=== PATIENT | female | born 1965 | race Caucasian/White ===

== ENCOUNTER 2017-05-21 12:13 | Emergency (ER) | payer MEDICARE ==
--- NOTE | 2017-05-21 13:31 | RAD ---
HISTORY: Dizziness COMPARISONS: November 07, 2011 VIEWS: 3: Frontal and lateral views of the chest. FINDINGS: CARDIOMEDIASTINAL SILHOUETTE: The cardiomediastinal silhouette is normal. MAANDA: The amanda are normal. PLEURA: The costophrenic angles are sharp. No pleural abnormalities are noted. LUNG PARENCHYMA: There is hyperinflation with flattening of the diaphragm and expansion of the AP diameter of the chest. ABDOMEN: The upper abdomen is clear. There is no subphrenic gas. BONES AND SOFT TISSUES: No bone or soft tissue abnormalities are noted. OTHER: None. IMPRESSION: HYPERINFLATION, CONSISTENT WITH COPD. NO ACTIVE CARDIOPULMONARY DISEASE.
[2017-05-21 13:52] LABS: Hematocrit 40 % (35-47); Hemoglobin 13.6 g/dl (12.0-16.0); Mean Corpuscular HGB Conc 34 g/dl (31-36); Mean Corpuscular Hemoglobin 33 pg (27-31); Mean Corpuscular Volume 97 fL (80-97); Mean Platelet Volume 8 um3 (7.4-10.4); Red Blood Count 4.11 10^6/ul (4.0-5.4); Red Cell Distribution Width 13 % (10.5-15); White Blood Count 6.2 10^3/ul (3.5-10.8)
[2017-05-21 14:08] LABS: Albumin 4.5 g/dL (3.2-5.2); BUN/Creatinine Ratio 18.8 (8-20); Calcium 9.5 mg/dL (8.6-10.3); EGFR African American 115.4 (>60); EGFR Non-African American 89.7 (>60); Globulin 2.8 g/dL (2-4); Potassium 3.7 mmol/L (3.5-5.0); Total Bilirubin 0.5 mg/dL (0.2-1.0); Total Protein 7.3 g/dL (6.4-8.9)
--- NOTE | 2017-05-21 14:21 | RAD ---
HISTORY: Dizziness COMPARISONS: None TECHNIQUE: Multiple contiguous axial CT scans were obtained of the head without intravenous contrast. FINDINGS: HEMORRHAGE/INFARCT: There is no hemorrhage or acute infarct. MASSES/SHIFT: There is no mass or shift. EXTRA-AXIAL SPACES: There are no extra-axial fluid collections. SULCI AND VENTRICLES: The sulci and ventricles are normal in size and position for the patient's stated age. CEREBRUM: There are no focal parenchymal abnormalities. BRAINSTEM: There are no focal parenchymal abnormalities. CEREBELLUM: There are no focal parenchymal abnormalities. VESSELS: The vessels are grossly normal. PARANASAL SINUSES: The paranasal sinuses are clear. ORBITS: The orbits are unremarkable. BONES AND SOFT TISSUE: No bone or soft tissue abnormalities are noted. OTHER: None IMPRESSION: NO ACUTE INTRACRANIAL PATHOLOGY.
[2017-05-21 15:01] VITALS: BP 119/67
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
== END 2017-05-21 14:59 | disposition home or self-care (01) ==
LOC: ED 12:13
DX: R42 Dizziness and giddiness (principal); R53.1 Weakness; R63.1 Polydipsia; E86.0 Dehydration; Z87.820 Personal history of traumatic brain injury; Z88.5 Allergy status to narcotic agent; Z88.8 Allergy status to other drugs, medicaments and biological substances; Z91.040 Latex allergy status
CPT/HCPCS: 36415; 70450; 71020; 80053; 83605; 84484; 85025; 85610; 93005; 99282

== ENCOUNTER 2017-11-02 19:11 | Emergency (ER) | payer MEDICARE ==
[2017-11-02] MEDS ORDERED: Lidocaine 1% MPF* 2 ML VIAL INJ ONE (19:29)
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
[2017-11-02] MEDS ORDERED: Tetan/Diph/Pertus SYR(Tdap)* 0.5 ML SYR(BOOSTRIX) use SYR IM ONE (19:33)
[2017-11-02 19:35] VITALS: BP 132/75
== END 2017-11-02 20:15 | disposition home or self-care (01) ==
LOC: UCEAST 19:11
DX: S61.211A Laceration without foreign body of left index finger without damage to nail, initial encounter (principal); W26.0XXA Contact with knife, initial encounter; Y93.G1 Activity, food preparation and clean up; Y92.9 Unspecified place or not applicable; Z23 Encounter for immunization; Z88.5 Allergy status to narcotic agent; Z88.8 Allergy status to other drugs, medicaments and biological substances
CPT/HCPCS: 12001; 90715; 99211; G0463

== ENCOUNTER 2018-08-13 13:00 | Emergency (ER) | payer MEDICARE ==
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
[2018-08-13] MEDS ORDERED: NS 0.9% 1000 ML* 1,000 ML IV ONE (13:45)
[2018-08-13 14:08] LABS: ABS Basophils 0 10^3/ul (0-0.2); ABS Eosinophils 0.1 10^3/ul (0-0.6); ABS Lymphocytes 1.4 10^3/ul (1.0-4.8); ABS Monocytes 0.3 10^3/ul (0-0.8); ABS Neutrophils 3.4 10^3/ul (1.5-7.7); ABS Nucleated RBC 0 10^3/ul; Eosinophil % 2.4 %; Hematocrit 38 % (35-47); Hemoglobin 13.2 g/dl (12.0-16.0); Lymphocyte % 26.3 %; Mean Corpuscular HGB Conc 34 g/dl (31-36); Mean Corpuscular Hemoglobin 34 pg (27-31); Mean Corpuscular Volume 98 fL (80-97); Mean Platelet Volume 8.5 fL (7.4-10.4); Nucleated Red Blood Cells % 0; Platelet Count 175 10^3/ul (150-450); Red Blood Count 3.93 10^6/ul (4.00-5.40); Red Cell Distribution Width 13 % (10.5-15); White Blood Count 5.3 10^3/ul (3.5-10.8)
[2018-08-13 14:22] LABS: Urine Appearance Cloudy; Urine Bilirubin Negative (Negative); Urine Blood Negative (Negative); Urine Color Yellow; Urine Glucose Negative (Negative); Urine Ketones Negative (Negative); Urine Nitrite Negative (Negative); Urine Protein Negative (Negative); Urine Specific Gravity 1.003 (1.010-1.030); Urine Urobilinogen Negative (Negative)
[2018-08-13 14:52] LABS: Albumin 4.3 g/dL (3.2-5.2); Albumin/Globulin Ratio 2.2 (1-3); BUN/Creatinine Ratio 14.7 (8-20); Calcium 9.3 mg/dL (8.6-10.3); EGFR Non-African American 81.1 (>60); Potassium 3.8 mmol/L (3.5-5.0); Total Bilirubin 0.6 mg/dL (0.2-1.0); Total Protein 6.3 g/dL (6.4-8.9)
[2018-08-13 15:10] VITALS: BP 113/63
== END 2018-08-13 15:07 | disposition home or self-care (01) ==
LOC: ED 13:00
DX: R20.2 Paresthesia of skin (principal); Z87.820 Personal history of traumatic brain injury
CPT/HCPCS: 36415; 70450; 80053; 81003; 85025; 96360; 99282

== ENCOUNTER 2019-05-27 20:55 | Emergency (ER) | payer MEDICARE ==
--- OUTSIDE RECORDS SUMMARY | 2019-05-27 21:17 | XMS REPORT | Continuity of Care Document ---
:1965 External Reference #:[id number] Author Name Maxim Alarcon M.D. 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 Onset: 02/28/2019 Abnormal involuntary movement Maxim Alarcon M.D. Onset: 02/28/2019 Chronic fatigue syndrome Maxim Alarcon M.D. 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 Onset: 05/05/2019 Social History Type Date Description Comments Sex Unknown Tobacco Use Start: Unknown End: Former Cigarette Smoker Unknown Tobacco Use Start: Unknown End: Former Cigarette Smoker Unknown 1/2 Pack Daily Cigarette Use Pack Years - 04 Smoking Status Reviewed: 05/05/19 Former Cigarette Smoker 1/2 Pack Daily ETOH Use Rarely consumes alcohol Tobacco Use Start: Unknown End: Patient is a former social smoker during Unknown smoker college years Exercise Exercises regularly Type/Frequency Allergies, Adverse Reactions, Alerts Active Allergies Reaction Severity Comments Date Codeine too strong - knocks her out for days 09/14/2013 Epinephrine 09/14/2013 Latex 09/14/2013 Medications Active Medications SIG Qnty Indications Ordering Date Provider Carbidopa-Levodopa 1/2 pill three 90tabs G20 Bartolo 03/10/2019 25-100mg times a day, 30 Beard, N.P. 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 Thyroid 1 by mouth every 30tabs E03.9 Celeste 02/16/2019 60mg Tablets day JOHNATHON Poe Terconazole Unknown Multivitamin Adult 1 by mouth every Unknown Tablets day Biest/Progesterone biest/progestero Unknown Cream ne 2/50mg bid Estriol/Test 1/0.5MG/GM 1 gram vaginally Unknown 1-2 times per week Necro-Optimizer 1 Capsule Daily Unknown Vitamin B Complex 1 by mouth every Unknown Tablets day Montez-E 1 Insert Nightly Unknown Suppository Lidocaine HCL Unknown Urethral/Mucosal 2% Gel Vitamin D daily Unknown Vitamin K daily Unknown Sulfamethoxazole 1 tab by mouth Unknown twice daily History Medications [place] Thyroid 1 by mouth 30tabs E03.9 JOHNATHON Hart 02/15/2019 - daily 02/16/2019 60mg Tablets Immunizations Description No Information Available Vital Signs Date Vital Result Comment 05/05/2019 1:07pm Height 65 inches 5'5" Weight 123.00 lb Heart Rate 66 /min BP Systolic 112 mmHg BP Diastolic 72 mmHg BMI (Body Mass Index) 20.5 kg/m2 04/25/2019 10:58am Height 65 inches 5'5" Weight 122.00 lb Heart Rate 83 /min BP Systolic 110 mmHg BP Diastolic 68 mmHg O2 % BldC Oximetry 97 % BMI (Body Mass Index) 20.3 kg/m2 Results Test Date Facility Test Result H/L Range Note Laboratory test 04/09/2019 [facility] TSH 6.89 mcIU/mL High 0.34-5.[address] ([place] [address] Stim Horm) [phone] Free 3.40 pg/mL Normal 2.5-3.9 Free T4 (Free Thyroxine) 0.61 ng/dL Normal 0.61-1.12 Laboratory 03/03/2019 [facility] TSH (Thyroid 1.15 Normal 0.34 -5.60 test finding [address] Stim Horm) mcIU/[place] [address] [phone] Free 3.50 pg/mL Normal 2.5-3.9 Free T4 (Free Thyroxine) 0.67 ng/dL Normal 0.61-1.12 Laboratory test 02/28/2019 [facility] Copper, Serum 0.76 g/mL 0.75-1.45 1 finding [address] [place] [address] [phone] Ceruloplasmin 20.2 mg/dL 2 Free T4 (Free Thyroxine) 0.70 ng/dL Normal 0.61-1.12 TSH (Thyroid Stim Horm) 1.30 mcIU/mL Normal 0.34-5.60 Vitamin B12 02/28/2019 [facility] Vitamin B12 711 pg/mL Normal 180-914 3 And Folate [address] [facility] [place] [address] [phone] Folic Acid (Folate) > 20.00 ng/mL >3.99 Comp Metabolic 02/28/2019 [facility] Sodium 141 mmol/L Normal 135-145 [place] [address] [phone] Potassium 4.4 mmol/L Normal 3.5-5.0 Chloride 104 mmol/L Normal 101-111 Co2 Carbon Dioxide 32 mmol/L Normal 22-32 Anion Gap 5 mmol/L Normal 2-11 Glucose 102 mg/dL High 70-100 Blood Urea Nitrogen 12 mg/dL Normal 6-24 Creatinine 0.75 mg/dL Normal 0.51-0.95 BUN/Creatinine Ratio 16.0 Normal 8-20 Calcium 10.0 mg/dL Normal 8.6-10.3 Total Protein 7.2 g/dL Normal 6.4-8.9 Albumin 4.7 g/dL Normal 3.2-5.2 Globulin 2.5 g/dL Normal 2-4 Albumin/Globulin Ratio 1.9 Normal 1-3 Total Bilirubin 0.70 mg/dL Normal 0.2-1.0 Alkaline Phosphatase 41 U/L Normal 34-104 Alt 16 U/L Normal 7-52 Ast 21 U/L Normal 13-39 Egfr Non- 80.8 >60 Egfr 97.8 >60 4 Laboratory test finding 02/15/2019 [facility] Progesterone 0.7 ng/mL 5 [address] [place] [address] [phone] Estradiol <40 pg/mL 6 Testosterone Free 02/15/2019 [facility] Free 0.19 0.06-0.92 7 & Total [address] [facility] Testosterone ng/[place] [address] ng/dl [phone] Testosterone 17 ng/dL 8-60 8 Laboratory test 02/15/2019 [facility] TSH (Thyroid 7.87 High 0.34-5.[address] Stim Horm) mcIU/[place] [address] [phone] Free T4 (Free Thyroxine) 0.65 ng/dL Normal 0.61-1.12 T3 Free 3.00 pg/mL Normal 2.5-3.9 Thyroid 02/15/2019 [facility] Thyroid 0.53 Normal <9 Autoantibodies [address] [facility] Peroxidase IU/[place] [address] Antibodies [phone] Laboratory test 02/15/2019 [facility] Thyroglobulin 0.5 <4.0 finding [address] Antibody II IU/[place] [address] [phone] C Reactive Protein < 1.00 mg/L Normal <8.01 Vitamin D Total 25(Oh) 29.6 ng/mL Normal 20-50 9 Vitamin B12 635 pg/mL Normal 180-914 10 Estradiol, Confirmatory, S <10 pg/mL 11 Laboratory test 11/19/2018 [facility] Cytology SEE RESULT BELOW 12 finding [address] [place] [address] [phone] ADDITIONAL INFORMATION This test was developed and its performance characteristics determined by [facility] in a manner consistent with CLIA requirements. This test has not been cleared or approved by the U.S. Food and Drug Administration. Test Performed by: [facility] [address] [place] [address] 2 REFERENCE VALUE 20.0 - 51.0 Test Performed by: [facility] [place] [address] [address] 3 Normal Range 180 to 914 Indeterminate Range 145 to 180 Deficient Range <145 4 Because ethnic data is not always readily available, this report includes an eGFR for both -Americans and non- Americans. The National Kidney Disease Education Program (NKDEP) does not endorse the use of the MDRD equation for patients that are not between the ages of 18 and 70, are , have extremes of body size, muscle mass, or nutritional status, or are non- or non-. According to the National Kidney Foundation, irrespective of diagnosis, the stage of the disease is based on the level of kidney function: Stage Description GFR(mL/min/1.73 m(2)) 1 Kidney damage with normal or decreased GFR 90 2 Kidney damage with mild decrease in GFR 60-89 3 Moderate decrease in GFR 30-59 4 Severe decrease in GFR 15-29 5 Kidney failure <15 (or dialysis) 5 Female reference ranges for Progesterone: Follicular phase.......0.3 - 1.5 ng/ml Mid-luteal phase.......5.2 - 18.5 ng/ml Postmenopausal.........< 0.8 ng/ml 1st trimester.........4.7 - 50.0 ng/ml 2nd trimester.........19.4 - 45.3 ng/ml 6 Estradiols <40 pg/mL are sent to a reference lab for low range testing. Postmenopausal Females < 20 Ovulating females: by day in cycle relative to LH Peak Follicular phase - 12 10-50 - 4 60-200 Mid-cycle - 1 120-375 Luteal phase + 2 50-155 + 6 60-260 + 12 15-115 7 ADDITIONAL INFORMATION Testing performed by [facility]. This test was developed and its performance characteristics determined by [facility] in a manner consistent with CLIA requirements. This test has not been cleared or approved by the U.S. Food and Drug Administration. 8 ADDITIONAL INFORMATION Testing performed by Liquid Chromatography-Tandem Mass Spectrometry (LC-MS/MS). This test was developed and its performance characteristics determined by [facility] in a manner consistent with CLIA requirements. This test has not been cleared or approved by the U.S. Food and Drug Administration. Test Performed by: [facility] - [address] [address] 9 Total 25-Hydroxyvitamin D2 and D3 (25-OH-VitD) <10 ng/mL (severe deficiency) 10-19 ng/mL (mild to moderate deficiency) 20-50 ng/mL (optimum levels) 51-80 ng/mL (increased risk of hypercalciuria) >80 ng/mL (toxicity possible) 10 Normal Range 180 to 914 Indeterminate Range 145 to 180 Deficient Range <145 11 REFERENCE VALUE Premenopausal: 15-350 (E2 levels vary widely through the menstrual cycle.) Postmenopausal: <10 ADDITIONAL INFORMATION This test was developed and its performance characteristics determined by [facility] in a manner consistent with CLIA requirements. This test has not been cleared or approved by the U.S. Food and Drug Administration. Test Performed by: [facility] - [address] [address] 12 SEE RESULT BELOW Name: TESFAYE MUNOZ : [address]: Joe Somers MD Acct: [id number] Unit: [id number] AGE: 52 Location: [facility] Re11/19/18 SEX: F Status: REG REF SPEC: [id number] MICHAEL: 11/19/18-[address] [facility] [address]: Joe Somers MD REQ: [id number] RECD: 11/19/18 STATUS: SOUT _ ORDERED: TP IMAGE ANALYS, HPV/Thin Prep COMMENTS: [id number] Negative for Intraepithelial lesion or Malignancy Date Time Test Result Flag (u) Normal Range 11/19/18 1218 @ HPV RNA Negative Negative @ @ The high-risk HPV types detected by the assay include: 16, @ 18, 31, 33, 35, 39, 45, 51, 52, 56, 58, 59, 66, and 68. A. Ectocervical/Endocervical Specimen Adequacy: Satisfactory of evaluation Transformation zone component identified Patient Information: HPV: High risk HPV RNA testing regardless of pap results. Actual Specimen Date: 11/19/18 LMP If Unknown: age 48 ?: N Post Menopausal?: Y Hysterectomy?: N Signed by and Reported on: JINA Loo (ASCP) 0949 This Pap test was evaluated with the assistance of the [employer] GroupPrep Test Imaging System. Due to cytologic findings at the recruitment assistant microscope, comprehensive manual rescreening by a Maintenance Worker House Trailer may be required. The Pap Smear is a screening test designed to aid in the detection of premalignant and malignant conditions of the uterine cervix. It is not a diagnostic procedure and should not be used as the sole means of detecting cervical cancer. Both false- positive and false- negative reports do occur. Depending on your risk status, a Pap smear should be obtained and evaluated every 1-3 years. END OF REPORT DEPARTMENT OF PATHOLOGY, [address] [place] [address] Aleks Moreno M.D. Director [facility] # [id number] Procedures Date Code Description Status 01/10/2018 [id number] Mammogram Completed 05/05/2017 [id number] Colonoscopy Completed Medical Devices Description No Information Available Encounters Type Date Location Provider Dx Diagnosis Office Visit 05/05/2019 [facility] Maxim Alarcon G2Carina Parkinson' s 1:00p [facility] Carlos disease R53.82 Chronic fatigue, unspecified E03.9 Hypothyroidism, unspecified Office Visit 03/23/2019 1:00p [facility] Liv Perdomo, N95.1 Menopausal and [facility] N.P. female climacteric states N94.10 Unspecified dyspareunia Office Visit 03/21/2019 10:30a [facility] Lucy Hart Parkinson's [facility] [place] disease R53.82 Chronic fatigue, unspecified E03.9 Hypothyroidism, unspecified N94.10 Unspecified dyspareunia Office Visit 03/10/2019 8:00a [facility] Bartolo Beard, G20 Parkinson's [facility] N.P. disease R53.82 Chronic fatigue, unspecified S06.2x6A Diffuse Tbi w Loc >24 hr w/o ret consc w surv, init Office Visit 02/28/2019 10:00a Gianna Alarcon, S06.2x6A Diffuse Tbi w Neurologic M.D. Loc >24 hr [facility] w/o ret consc w surv, init R25.1 Tremor, unspecified R53.82 Chronic fatigue, unspecified Office Visit 02/15/2019 1:00p [facility] Celeste Poe, N95.1 Menopausal and [facility] [place] female climacteric states N76.1 Subacute and chronic vaginitis R53.83 Other fatigue E03.9 Hypothyroidism, unspecified Office Visit 11/19/2018 10:30a [facility] Joe Somers, N95.0 Postmenopausal [facility] MD gastelum N95.2 Postmenopausal atrophic vaginitis Z12.4 Encounter for screening for malignant neoplasm of cervix Assessments Date Code Description Provider 05/05/2019 G20 Parkinson's disease Maxim Alarcon M.D. 05/05/2019 R53.82 Chronic fatigue, unspecified Maxim Alarcon M.D. 05/05/2019 E03.9 Hypothyroidism, unspecified Maxim Alarcon M.D. 04/25/2019 R10.2 Pelvic and perineal pain Liv Perdomo N.P. 03/23/2019 N95.1 Menopausal and female climacteric states Liv Perdomo N.P. 03/23/2019 N94.10 Unspecified dyspareunia Liv Perdomo N.P. 03/21/2019 G20 Parkinson's disease JOHNATHON Hart 03/21/2019 R53.82 Chronic fatigue, unspecified JOHNATHON Hart 03/21/2019 E03.9 Hypothyroidism, unspecified JOHNATHON Hart 03/21/2019 N94.10 Unspecified dyspareunia JOHNATHON Hart 03/10/2019 G20 Parkinson's disease Bartolo Beard N.PAleida 03/10/2019 R53.82 Chronic fatigue, unspecified Bartolo Beard N.PAleida 03/10/2019 S06.2x6A Diffuse traumatic brain injury with loss Bartolo Beard N.P. of consciousness gr 02/28/2019 S06.2x6A Diffuse traumatic brain injury with loss Maxim Alarcon M.D. of consciousness gr 02/28/2019 R25.1 Tremor, unspecified Maxim Alarcon M.D. 02/28/2019 R53.82 Chronic fatigue, unspecified Maxim Alarcon M.D. 02/15/2019 N95.1 Menopausal and female climacteric states JOHNATHON Hart 02/15/2019 N76.1 Subacute and chronic vaginitis JOHNATHON Hart 02/15/2019 R53.83 Other fatigue JOHNATHON Hart 02/15/2019 E03.9 Hypothyroidism, raeannified JOHNATHON Hart 11/19/2018 N95.0 Postmenopausal bleeding Joe Somers MD 11/19/2018 N95.2 Postmenopausal atrophic vaginitis Joe Somers MD 11/19/2018 Z12.4 Encounter for screening for malignant Joe Somers MD neoplasm of cervix Plan of Treatment Future Appointment(s):07/05/2019 11:00 am - Bartolo Beard N.P. at [facility]05/09/2019 11:00 am - JOHNATHON Hart at [facility]05/05/2019 - Maxim Alarcon M.D.G20 Parkinson's diseaseFollow up:Follow up in 8 weeks with Gayathri.82 Chronic fatigue, adfkpusgljrG81.9 Hypothyroidism, unspecified Functional Status Description No Information Available Mental Status Description No Information Available Referrals Refer to Reason for Referral Status Appt Date Marsha Valdivia, PT, OCS Pain with sex Sent [address] [place] [address] [phone] Celeste Poe PA Received Complete 02/15/2019 [address] [facility], [place] [address] [phone]
--- OUTSIDE RECORDS SUMMARY | 2019-05-27 21:17 | XMS REPORT | Continuity of Care Document ---
:1965 External Reference #:[id number] Author Name Liv Perdomo N.P. 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 Onset: 02/28/2019 Abnormal involuntary movement Maxim Alarcon M.D. Onset: 02/28/2019 Chronic fatigue syndrome Maxim Alarcon M.D. 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 Onset: consciousness greater than 24 hours without return to pre-existing conscious level with patient surviving, initial encounter Social History Type Date Description Comments Sex Unknown Tobacco Use Start: Unknown End: Former Cigarette Smoker Unknown Tobacco Use Start: Unknown End: Former Cigarette Smoker Unknown 1/2 Pack Daily Cigarette Use Pack Years - 04 Smoking Status Reviewed: 04/25/19 Former Cigarette Smoker 1/2 Pack Daily ETOH [...] Beard, N.P. Tablets min prior to meals [employer] Thyroid 1 by mouth every 30tabs E03.9 [...] by mouth Unknown twice daily History Medications [place] Thyroid 1 by mouth 30tabs E03.9 JOHNATHON Hart 02/15/2019 - daily 02/16/2019 60mg Tablets Immunizations Description No Information Available Vital Signs Date Vital Result Comment 04/25/2019 10:58am Height 65 inches 5'5" Weight 122.00 lb Heart Rate 83 /min BP Systolic 110 mmHg BP Diastolic 68 mmHg O2 % BldC Oximetry 97 % BMI (Body Mass Index) 20.3 kg/m2 03/23/2019 1:15pm Height 65 inches 5'5" Weight 121.25 lb Heart Rate 62 /min BP Systolic Sitting 106 mmHg BP Diastolic Sitting 64 mmHg Body Temperature 97.6 F O2 % BldC Oximetry 100 % BMI (Body Mass Index) 20.2 kg/m2 Results Test Date Facility Test Result H/L Range Note Laboratory test 04/09/2019 [facility] TSH 6.89 mcIU/mL High 0.34-5.[address] ([place] [address] Stim Horm) [phone] [phone] Free 3.40 pg/mL Normal 2.5-3.9 Free T4 (Free Thyroxine) 0.61 ng/dL Normal 0.61-1.12 Laboratory 03/03/2019 [facility] TSH (Thyroid 1.15 Normal 0.34 -5.60 test finding [address] Stim Horm) mcIU/[place] [address] [phone] [phone] Free 3.50 pg/mL Normal 2.5-3.9 Free T4 (Free Thyroxine) 0.67 ng/dL Normal 0.61-1.12 Laboratory test 02/28/2019 [facility] Copper, Serum 0.76 g/mL 0.75-1.45 1 finding [address] [place] [address] [phone] Ceruloplasmin 20.2 mg/dL 2 Free T4 (Free Thyroxine) 0.70 ng/dL Normal 0.61-1.12 TSH (Thyroid Stim Horm) 1.30 mcIU/mL Normal 0.34-5.60 Vitamin B12 02/28/2019 [facility] Vitamin B12 711 pg/mL Normal 180-914 3 And Folate [facility] [place] [address] [phone] Folic Acid (Folate) > 20.00 ng/mL >3.99 Comp Metabolic 02/28/2019 [facility] Sodium 141 mmol/L Normal 135-145 [place] [address] [phone] Potassium 4.4 mmol/L Normal 3.5-5.0 Chloride 104 [...] 97.8 >60 4 Laboratory test finding 02/15/2019 [facility] Progesterone 0.7 ng/mL 5 [address] [place] [address] [phone] Estradiol <40 pg/mL 6 Testosterone Free 02/15/2019 [facility] Free 0.19 0.06-0.92 7 & Total [address] [facility] Testosterone ng/[place] [address] ng/dl [phone] Testosterone 17 ng/dL 8-60 8 Laboratory test 02/15/2019 [facility] TSH (Thyroid 7.87 High 0.34-5.[address] Stim Horm) mcIU/[place] [address] [phone] Free T4 (Free Thyroxine) 0.65 ng/dL Normal 0.61-1.12 T3 Free 3.00 pg/mL Normal 2.5-3.9 Thyroid 02/15/2019 [facility] Thyroid 0.53 Normal <[address] Peroxidase IU/[place] [address] Antibodies [phone] Laboratory test 02/15/2019 [facility] Thyroglobulin 0.5 <4.0 finding 101 [facility] Antibody II IU/[place] [address] [phone] C Reactive Protein < 1.00 mg/L Normal <8.01 Vitamin D Total 25(Oh) 29.6 ng/mL Normal 20-50 9 Vitamin B12 635 pg/mL Normal 180-914 10 Estradiol, Confirmatory, S <10 pg/mL 11 Laboratory test 11/19/2018 [facility] Cytology SEE RESULT BELOW 12 finding [address] [place] [address] [phone] 1 ADDITIONAL INFORMATION This test was developed and its performance characteristics determined by [facility] in a manner consistent with CLIA requirements. This test has not been cleared or approved by the U.S. Food and Drug Administration. Test Performed by: [facility] [employer] - [facility] [address] [place] [address] 2 REFERENCE VALUE 20.0 - 51.0 Test Performed by: [facility] [employer] - [address] [address] 3 Normal Range 180 to 914 Indeterminate [...] developed and its performance characteristics determined by [facility] in a manner consistent with CLIA requirements. This test has not been cleared or approved by the U.S. Food and Drug Administration. 8 ADDITIONAL INFORMATION Testing performed by Liquid Chromatography-Tandem Mass Spectrometry (LC-MS/MS). This test was developed and its performance characteristics determined by [facility] in a manner consistent with CLIA requirements. This test has not been cleared or approved by the U.S. Food and Drug Administration. Test Performed by: [facility] - [address] [address] 9 Total 25-Hydroxyvitamin D2 and D3 (25-OH-VitD) [...] developed and its performance characteristics determined by [facility] in a manner consistent with CLIA requirements. This test has not been cleared or approved by the U.S. Food and Drug Administration. Test Performed by: [facility] - [address] [address] 12 SEE RESULT BELOW Name: TESFAYE MUNOZ : [address]: Joe Somers MD Acct: [id number] Unit: [id number] AGE: 52 Location: [facility] Re11/19/18 SEX: F Status: REG REF SPEC: [id number] MICHAEL: 11/19/18-[address] [facility] [address]: Joe Somers MD REQ: [id number] RECD: 11/19/18 STATUS: SOUT _ ORDERED: TP IMAGE ANALYS, HPV/Thin Prep COMMENTS: [id number] Negative for Intraepithelial lesion or Malignancy Date [...] was evaluated with the assistance of the PanasasPrep Test Imaging System. Due to cytologic findings at the outcomes analyst microscope, comprehensive manual rescreening by a Gang Tailer may be required. The Pap Smear is [...] years. END OF REPORT DEPARTMENT OF PATHOLOGY, [address] [place] [address] Aleks Moreno M.D. Director [facility] # [id number] Procedures Date Code Description Status 01/10/2018 [id number] Mammogram Completed 05/05/2017 [id number] Colonoscopy Completed Medical Devices Description No Information Available Encounters Type Date Location Provider Dx Diagnosis Office Visit 03/23/2019 [facility] Liv Perdomo, N.P. N95.1 Menopausal and 1:00p [facility] female climacteric states N94.10 Unspecified dyspareunia Office Visit 03/21/2019 10:30a [facility] Celeste Poe, 0 Parkinson's [facility] [place] disease R53.82 Chronic fatigue, unspecified E03.9 Hypothyroidism, unspecified N94.10 Unspecified dyspareunia Office Visit 03/10/2019 8:00a [place] Janice Beard, G20 [facility]'s [facility] N.P. disease R53.82 Chronic fatigue, unspecified S06.2x6A Diffuse Tbi w Loc >24 hr w/o ret consc w surv, init Office Visit 02/28/2019 10:00a Gianna Alarcon, S06.2x6A Diffuse Tbi w Neurologic M.D. Loc >24 hr [facility] w/o ret consc w surv, init R25.1 Tremor, unspecified R53.82 Chronic fatigue, unspecified Office Visit 02/15/2019 1:00p [facility] Celeste Poe, N95.1 Menopausal and [facility] JOHNATHON female climacteric states N76.1 Subacute and chronic vaginitis R53.83 Other fatigue E03.9 Hypothyroidism, unspecified Office Visit 11/19/2018 10:30a [facility] Joe Somers, N95.0 Postmenopausal [facility] MD gastelum N95.2 Postmenopausal atrophic vaginitis Z12.4 Encounter for screening for malignant neoplasm of cervix Assessments Date Code Description Provider 03/23/2019 N95.1 Menopausal and female climacteric states Liv Perdomo, N.P. 03/23/2019 N94.10 Unspecified dyspareunia Liv Perdomo, N.P. 03/21/2019 G20 Parkinson's disease Celeste Poe, PA 03/21/2019 R53.82 Chronic fatigue, unspecified Celeste Poe, PA 03/21/2019 E03.9 Hypothyroidism, unspecified Celeste Poe, PA 03/21/2019 N94.10 Unspecified dyspareunia Celeste Poe PA 03/10/2019 G20 Parkinson's disease Bartolo Beard, N.P. 03/10/2019 R53.82 Chronic fatigue, unspecified Bartolo Beard, N.P. 03/10/2019 S06.2x6A Diffuse traumatic brain injury with loss Bartolo Beard , N.P. of consciousness gr 02/28/2019 S06.2x6A Diffuse traumatic brain injury with loss Maxim Alarcon M.D. of consciousness gr 02/28/2019 R25.1 Tremor, unspecified Maxim Alarcon M.D. 02/28/2019 R53.82 Chronic fatigue, unspecified Maxim Alarcon M.D. 02/15/2019 N95.1 Menopausal and female climacteric states Celeste Poe PA 02/15/2019 N76.1 Subacute and chronic vaginitis JOHNATHON Hart 02/15/2019 R53.83 Other fatigue JOHNATHON Hart 02/15/2019 E03.9 Hypothyroidism, unspecified JOHNATHON Hart 11/19/2018 N95.0 Postmenopausal bleeding Joe Somers MD 11/19/2018 N95.2 Postmenopausal atrophic vaginitis Joe Somers MD 11/19/2018 Z12.4 Encounter for screening for malignant Joe Somers MD neoplasm of cervix Plan of Treatment Future Appointment(s):05/09/2019 11:00 am - JOHNATHON Hart at [facility]05/05/2019 1:00 pm - Maxim Alarcon M.D. at [place] [facility] Functional Status Description No Information Available Mental Status Description No Information Available Referrals Refer to Dr Reason for Referral Status Appt Date Marsha Valdivia, PT, OCS Pain with sex Sent [address] [place] [address] [phone] Celeste Poe PA Received Complete 02/15/2019 [address] [facility], [place] [address] [phone]
--- OUTSIDE RECORDS SUMMARY | 2019-05-27 21:17 | XMS REPORT | Continuity of Care Document ---
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 Tablets min prior to meals [employer] Thyroid 1 by mouth every 30tabs E03.9 Celeste 02/16/2019 60mg Tablets day JOHNATHON Poe Terconazole prn yeast Unknown infection Multivitamin Adult 1 by mouth every Unknown Tablets day Biest/Progesterone biest/progesterone Unknown Cream 2/50mg bid Estriol/Test 1/0.5MG/GM 1 gram vaginally Unknown every other night Vitamin B Complex 1 by mouth every Unknown Tablets day [place]-E 1 Insert every Unknown Suppository other night alternating with hormonal therapy Lidocaine HCL applied to urethra Unknown Urethral/Mucosal every other night 2% Gel Vitamin D daily Unknown Vitamin K daily Unknown Sulfamethoxazole 1 tab by mouth Unknown twice daily prn UTI Neuro-Optimizer one capsule daily Unknown History Medications [place] Thyroid 1 by mouth 30tabs E03.9 JOHNATHON Hart 02/15/2019 - daily 02/16/2019 60mg Tablets Immunizations Description No Information Available Vital Signs Date Vital Result Comment 05/09/2019 11:05am Height 65 inches 5'5" Weight 124.25 lb Heart Rate 65 /min BP Systolic 93 mmHg BP Diastolic 60 mmHg Body Temperature 98.0 F Pain Level 100 BMI (Body Mass Index) 20.7 kg/m2 05/05/2019 1:07pm Height 65 inches 5'5" Weight 123.00 lb Heart Rate 66 /min BP Systolic 112 mmHg BP Diastolic 72 mmHg BMI (Body Mass Index) 20.5 kg/m2 Results Test Date Facility Test Result H/L Range Note Laboratory test 05/09/2019 [facility] TSH (Thyroid <pending> finding [address] Stim Horm) [place] [address] [phone] T3 Free <pending> Free T4 (Free Thyroxine) <pending> Laboratory test 04/09/2019 [facility] TSH (Thyroid 6.89 High 0.34-5.[address] Stim Horm) mcIU/mL [place], [place] [address] [phone] Free 3.40 pg/mL Normal 2.5-3.9 Free T4 (Free Thyroxine) 0.61 ng/dL Normal 0.61-1.12 Laboratory 03/03/2019 [facility] TSH (Thyroid 1.15 Normal 0.34 -5.[address] Stim Horm) mcIU/[place] [address] [phone] T3 Free 3.50 pg/mL Normal 2.5-3.9 Free T4 (Free Thyroxine) 0.67 ng/dL Normal 0.61-1.12 Laboratory test 02/28/2019 [facility] Copper, Serum 0.76 g/mL 0.75-1.[address] [place] [address] [phone] Ceruloplasmin 20.2 mg/dL 2 Free T4 (Free Thyroxine) 0.70 ng/dL Normal 0.61-1.12 TSH (Thyroid Stim Horm) 1.30 mcIU/mL Normal 0.34-5.60 Vitamin B12 02/28/2019 [facility] Vitamin B12 711 pg/mL Normal 180-914 3 And Folate [address] [place] [address] [phone] Folic Acid (Folate) > 20.00 ng/mL >3.99 Comp Metabolic 02/28/2019 [facility] Sodium 141 mmol/L Normal 135-[address] [place] [address] [phone] Potassium 4.4 mmol/L Normal 3.5-5.0 Chloride 104 [...] 97.8 >60 4 Laboratory test finding 02/15/2019 [facility] Progesterone 0.7 ng/mL 5 [place] [address] [phone] Estradiol <40 pg/mL 6 Testosterone Free 02/15/2019 [facility] Free 0.19 0.06-0.92 7 & Total [facility] Testosterone ng/[place] [address] ng/dl [phone] Testosterone 17 ng/dL 8-60 8 Laboratory test 02/15/2019 [facility] TSH (Thyroid 7.87 High 0.34-5.[address] [place] [address] Stim Horm) mcIU/[place] [address] [phone] Free T4 (Free Thyroxine) 0.65 ng/dL Normal 0.61-1.12 T3 Free 3.00 pg/mL Normal 2.5-3.9 Thyroid 02/15/2019 [facility] Thyroid 0.53 Normal <[address] [place] [address] Peroxidase IU/[place] [address] Antibodies [phone] Laboratory test 02/15/2019 [facility] Thyroglobulin 0.5 <4.[address] [place] [address] Antibody II IU/[place] [address] [phone] C Reactive Protein < 1.00 mg/L Normal <8.01 Vitamin D Total 25(Oh) 29.6 ng/mL Normal 20-50 9 Vitamin B12 635 pg/mL Normal 180-914 10 Estradiol, Confirmatory, S <10 pg/mL 11 Laboratory test 11/19/2018 [facility] Cytology SEE RESULT BELOW [address] [place] [address] [phone] 1 ADDITIONAL INFORMATION This test was developed and its performance characteristics determined by [facility] in a manner consistent with CLIA requirements. This test has not been cleared or approved by the U.S. Food and Drug Administration. Test Performed by: [facility] - [facility] [address] [place] [address] 2 REFERENCE VALUE 20.0 - 51.0 Test Performed by: [facility] - [facility] [address] [place] [address] 3 Normal Range 180 to 914 Indeterminate [...] developed and its performance characteristics determined by [facility] in a manner consistent with CLIA requirements. This test has not been cleared or approved by the U.S. Food and Drug Administration. 8 ADDITIONAL INFORMATION Testing performed by Liquid Chromatography-Tandem Mass Spectrometry (LC-MS/MS). This test was developed and its performance characteristics determined by [facility] in a manner consistent with CLIA requirements. This test has not been cleared or approved by the U.S. Food and Drug Administration. Test Performed by: [facility] [employer] - [place] [address] 9 Total 25-Hydroxyvitamin D2 and D3 (25-OH-VitD) [...] developed and its performance characteristics determined by [facility] in a manner consistent with CLIA requirements. This test has not been cleared or approved by the U.S. Food and Drug Administration. Test Performed by: [facility] [employer] [place] [place] [address] 12 SEE RESULT BELOW Name: TESFAYE MUNOZ Felicia : [address]: Joe Somers MD Acct: [id number] Unit: [id number] AGE: 52 Location: [facility] Re11/19/18 SEX: F Status: REG REF SPEC: [id number] MICHAEL: 11/19/18-[address]: Joe Somers MD REQ: [id number] RECD: 11/19/18 STATUS: SOUT _ ORDERED: TP IMAGE ANALYS, HPV/Thin Prep COMMENTS: [id number] Negative for Intraepithelial lesion or Malignancy Date [...] Hysterectomy?: N Signed by and Reported on: Saw JINA Ndiaye (ASCP) 0949 This Pap test was evaluated with the assistance of the COMPS.comPrep Test Imaging System. Due to cytologic findings at the supervisor special effects microscope, comprehensive manual rescreening by a Computing Systems Mechanic may be required. The Pap Smear is [...] years. END OF REPORT DEPARTMENT OF PATHOLOGY, [address] [place] [address] Aleks Moreno M.D. Director [facility] # [id number] Procedures Date Code Description Status 01/10/2018 [id number] Mammogram Completed 05/05/2017 [id number] Colonoscopy Completed Medical Devices Description No Information Available Encounters Type Date Location Provider Dx Diagnosis Office Visit 05/05/2019 [facility] Maxim Alarcon, G20 Parkinson' s 1:00p [facility] disease R53.82 Chronic fatigue, unspecified E03.9 Hypothyroidism, unspecified Office Visit 04/25/2019 10:40a [facility] Liv Perdomo, R10.2 [facility] NAleidaPAleida perineal pain N94.10 Unspecified dyspareunia Office Visit 03/23/2019 1:00p [facility] Liv Perdomo, N95.1 Menopausal and [facility] N.P. female climacteric states N94.10 Unspecified dyspareunia Office Visit 03/21/2019 10:30a [facility] Celeste Poe, G20 Parkinson's [facility] [place] disease R53.82 Chronic fatigue, unspecified E03.9 Hypothyroidism, unspecified N94.10 Unspecified dyspareunia Office Visit 03/10/2019 8:00a [facility] Bartolo Beard, G20 [facility]'s [facility] N.P. disease R53.82 Chronic fatigue, unspecified S06.2x6A Diffuse Tbi w Loc >24 hr w/o ret consc w surv, init Office Visit 02/28/2019 10:00a [place] Maxim Alarcon, S06.2x6A Diffuse Tbi w Neurologic M.D. Loc >24 hr [facility] w/o ret consc w surv, init R25.1 Tremor, unspecified R53.82 Chronic fatigue, unspecified Office Visit 02/15/2019 1:00p [facility] Celeste Poe, N95.1 Menopausal and [facility] [place] female climacteric states N76.1 Subacute and chronic vaginitis R53.83 Other fatigue E03.9 Hypothyroidism, unspecified Office Visit 11/19/2018 10:30a [facility] Barneyharinder Lizbet, N95.0 Postmenopausal [facility] MD bleeding N95.2 Postmenopausal atrophic vaginitis Z12.4 Encounter for screening for malignant neoplasm of cervix Assessments Date Code Description Provider 05/09/2019 E03.9 Hypothyroidism, unspecified JOHNATHON Hart 05/09/2019 G20 Parkinson's disease JOHNATHON Hart 05/09/2019 N95.9 Unspecified menopausal and perimenopausal JOHNATHON Hart disorder 05/05/2019 G20 Parkinson's disease Maxim Alarcon M.D. 05/05/2019 R53.82 Chronic fatigue, unspecified Maxim Alarcon M.D. 05/05/2019 E03.9 Hypothyroidism, unspecified Maxim Alarcon M.D. 04/25/2019 R10.2 Pelvic and perineal pain Liv Perdomo N.P. 04/25/2019 N94.10 Unspecified dyspareunia Liv Perdomo, N.P. 03/23/2019 N95.1 Menopausal and female climacteric states Liv Perdomo, N.P. 03/23/2019 N94.10 Unspecified dyspareunia Liv Perdomo, N.P. 03/21/2019 G20 Parkinson's disease Celeste Poe, PA 03/21/2019 R53.82 Chronic fatigue, unspecified Celeste Poe, PA 03/21/2019 E03.9 Hypothyroidism, unspecified Celeste Poe, PA 03/21/2019 N94.10 Unspecified dyspareunia Celeste Poe, PA 03/10/2019 G20 Parkinson's disease Bartolo Beard, [...] fatigue JOHNATHON Hart 02/15/2019 E03.9 Hypothyroidism, unspecified Celeste Poe, PA 11/19/2018 N95.0 Postmenopausal bleeding Joe Somers MD 11/19/2018 N95.2 Postmenopausal atrophic vaginitis Joe Somers MD 11/19/2018 Z12.4 Encounter for screening for malignant Joe Somers MD neoplasm of cervix Plan of Treatment Future Appointment(s):07/12/2019 11:30 am - JOHNATHON Hart at [facility]07/05/2019 11:00 am - Bartolo Beard N.P. at [facility]05/09/2019 - Celeste Poe, PAE03.9 Hypothyroidism , unspecifiedRecommendations:[employer] carries a product called CARDIO CALM -see if this is affordable, take according to bottle.and stay at [employer] Thyroid 60mg for this company you may need to use my phone number or email [phone] [email or web address] when you have been on the [employer] Thyroid 60mg for a full month (that may be now) please recheck the labs , the order was sent to [facility]. if you takeyour med in the am, hold it til after the blood draw and try to go early (I know mornings can be hard but try to get there by 8-830am)G20 Parkinson's diseaseRecommendations:I recommended Ketogenic diet consider [employer]LECT[employer] COMPUTER MECHANIC or [employer], or [employer]man meal plans to assist you but I think it would be best to have some guidance from Kimberly Machuca, security operations manager to get you startedusing a keto blood monitor is so helpful to track if you are in ketosis sometimes using MCT oil helps push us into keto if we are having difficulty KETOTARIAN BY WILL MARY ANNE IS A GREAT BOOK FOR GUIDANCEAND RECIPES [email or web address] IS A GREAT RESOURCE YOU CAN'T AFFORD TO LOSE WEIGHT SO YOU MAY NEED MORE CARBS THAN STRICT KETO, FOR INSTANCE 60-65 % FAT, 20% PROTEIN, 15 -20% CARBS (STRICT KETO WOULDBE 10% CARBS)N95.9 Unspecified menopausal and perimenopausal disorder Functional Status Description No Information Available Mental Status Description No Information Available Referrals Refer to Reason for Referral Status Appt Date Marsha Valdivia, PT, OCS Pain with sex Sent [address] [place] [address] [phone] Celeste Poe PA Received Complete 02/15/2019 [address] [facility], [place] [address] [phone]
[2019-05-28 00:46] LABS: ABS Eosinophils 0.2 10^3/ul (0-0.6); ABS Lymphocytes 2.1 10^3/ul (1.0-4.8); ABS Monocytes 0.6 10^3/ul (0-0.8); ABS Neutrophils 4.8 10^3/ul (1.5-7.7); Eosinophil % 2.4 %; Hematocrit 40 % (35-47); Hemoglobin 13.8 g/dL (12.0-16.0); Lymphocyte % 27.6 %; Mean Corpuscular HGB Conc 35 g/dL (31-36); Mean Corpuscular Hemoglobin 34 pg (27-31); Mean Corpuscular Volume 99 fL (80-97); Mean Platelet Volume 8.3 fL (7.4-10.4); Platelet Count 194 10^3/uL (150-450); Red Blood Count 4.04 10^6 /uL (3.70-4.87); Red Cell Distribution Width 12 % (10-15); White Blood Count 7.7 10^3/uL (3.5-10.8)
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
[2019-05-28 01:04] LABS: Albumin 4.4 g/dL (3.2-5.2); Albumin/Globulin Ratio 1.6 (1-3); BUN/Creatinine Ratio 19.5 (8-20); Calcium 9.6 mg/dL (8.6-10.3); EGFR African American 94.9 (>60); EGFR Non-African American 78.4 (>60); Globulin 2.7 g/dL (2-4); Magnesium 2.3 mg/dL (1.9-2.7); Total Bilirubin 0.4 mg/dL (0.2-1.0); Total Protein 7.1 g/dL (6.4-8.9)
[2019-05-28 01:17] VITALS: BP 118/69
[2019-05-28 01:24] LABS: TSH (Thyroid Stimulating Horm) 8.61 mcIU/mL (0.34-5.60)
== END 2019-05-28 01:16 | disposition home or self-care (01) ==
LOC: ED 20:55
DX: R00.2 Palpitations (principal); G20 Parkinson's disease; Z88.5 Allergy status to narcotic agent; Z88.8 Allergy status to other drugs, medicaments and biological substances; Z91.040 Latex allergy status
CPT/HCPCS: 36415; 80053; 83605; 83735; 84443; 84484; 85025; 93005; 99282